=== PATIENT | female | born 1995 | race Two or more races ===

== ENCOUNTER 2025-02-05 09:26 | Emergency (ER) | payer OTHER ==
[~2025-02-05] VITALS: Ht 165.1 cm; Wt 59.9 kg
[2025-02-05 12:32] LABS: BASO % 0.2 % (0.1-1.2); EOS # 0.02 (0.04-0.54); EOS % 0.4 % (0.7-7.0); LYMPH # 1.35 (1.18-3.74); LYMPH % 28.5 % (19.3-53.1); MEAN PLATELET VOLUME 12.20 fl (9.4-12.4); MONO # 0.42 (0.24-0.82); MONO % 8.9 % (4.7-12.5); NEUT # 2.92 (1.56-6.13); NEUT % 61.6 % (34.0-71.1); RED CELL DISTRIBUTION WIDTH 12.9 % (11.6-14.4)
[2025-02-05] MEDS ORDERED: OCUFLOX5 ML OP (14:06)
== END 2025-02-05 14:13 | disposition home or self-care (01) ==
LOC: ER 09:27
DX: H57.89 Other specified disorders of eye and adnexa (principal); Z88.8 Allergy status to other drugs, medicaments and biological substances